=== PATIENT | female | born 1995 | race Two or more races ===

== ENCOUNTER → 2024-07-14 | Emergency (ER) | payer OTHER ==
[~2024-07-14] VITALS: Ht 154.9 cm; Wt 59.0 kg
[~2024-07-14] MED LIST: PRENATE DHA SO1 EAC1 PO
[2024-07-14 13:08] VITALS: BP 104/67; O2SAT 100
[2024-07-14 14:37] LABS: COVID-19 AG NEGATIVE (NEGATIVE); INFLUENZA A AG NEGATIVE (NEGATIVE)
== END | disposition home or self-care (01) ==
LOC: ER 12:53
PROVIDERS: General Practice
DX: B34.9 Viral infection, unspecified (principal); Z20.822 Contact with and (suspected) exposure to COVID-19; Z91.013 Allergy to seafood